=== PATIENT | female | born 1950 | race Caucasian/White ===

== ENCOUNTER 2017-05-15 06:29 | Day surgery (SDC) | payer OTHER ==
[2017-05-07 11:51] VITALS: BMI 21.9
[2017-05-15] MEDS ORDERED: LIDOCAINE HCL 2% (20ML MULTI-DOSE VIAL) NR ONE (07:20)
[2017-05-15] MEDS ORDERED: PROPOFOL 20 ML ONE ×2 (07:57)
[2017-05-15] MEDS ORDERED: MIDAZOLAM HCL 2 MG/2 ML SINGLE DOSE VIAL ONE (07:57)
[2017-05-15 09:05] VITALS: PULSE 97; TEMP 97.3
[2017-05-15 09:51] VITALS: BP 93/60
--- NOTE | 2017-05-15 11:41 | OP ---
DATE OF OPERATION: 05/15/2017 PREOPERATIVE DIAGNOSIS: Left long trigger-finger. POSTOPERATIVE DIAGNOSIS: Left long trigger-finger. OPERATIVE PROCEDURE: Left long trigger-finger release. SURGEON: Pranay Emery MD ANESTHESIA: Local with sedation. COMPLICATIONS: None. ESTIMATED BLOOD LOSS: Minimal. INDICATIONS FOR PROCEDURE: The patient is a 66-year-old female with the above findings, indicated for operative treatment. The risks, benefits, and alternatives were again discussed with the patient at length. Proper informed consent was obtained. DESCRIPTION OF PROCEDURE: After proper identification of the patient and the correct operative site, the patient was brought to the operating room and placed supine on the operating room table. All prominences were well padded. Sedation was given by the anesthesiologist; local anesthesia was given with 2% lidocaine. Left upper extremity was prepped and draped in the usual sterile fashion. A well-padded tourniquet was placed with a sterile prep. Esmarch bandage used to exsanguinate the left upper extremity. A tourniquet was inflated to 250 mmHg. A longitudinal incision was made over A1 althea. Incision was taken sharply through the skin with blunt and sharp dissection through subcutaneous tissues. A1 althea was divided longitudinally. Flexor tendon was found to have tendinosis and was thickened in the area. However, when I asked her to flex and extend her finger, full range of motion was achieved, and no further triggering was visualized. Wound was irrigated with saline and repaired with a 5-0 nylon suture. Sterile dressings were applied. Patient was reversed from anesthesia and brought to the recovery room in stable condition. She tolerated the procedure well. PRANAY EMERY M.D. [id number]
== END 2017-05-15 10:10 | disposition home or self-care (01) ==
LOC: FASU 06:29
PROVIDERS: ATTEND Orthopaedic Surgery Hand Surgery
PROC: 0LN80ZZ Release Left Hand Tendon, Open Approach (ICD-10-PCS; principal; 2017-05-15 08:24)
DX: M65.332 Trigger finger, left middle finger (principal)